=== PATIENT | male | born 1990 | race Caucasian/White ===

== ENCOUNTER → 2023-07-09 | Outpatient (CLI) | payer BC ==
--- NOTE | 2023-07-09 12:16 | US ---
EXAMINATION TYPE: US mass soft tissue chest/back DATE OF EXAM: 07/09/2023 COMPARISON: NONE CLINICAL INDICATION: Male, 33 years old with history of R22.2 Right flank mass; patient feels small l ump at lower RT back just lateral to the spine x 1-2 months TECHNIQUE: [employer] notes: several images taken at the area of concern FINDINGS: [employer] notes: 1.8x1.2x1.3cm hypoechoic area noted within the tissue layer. Lipoma vs. other IMPRESSION: The provided images show a subtle rounded area at the patient's palpable site that may be located wit hin the paraspinal musculature to the right of midline measuring 1.8 x 1.3 x 1.2 cm. The exact etiolo gy is unclear. Mesenchymal tumor such as intramuscular myxoma is in the differential. As the etiology is unclear, recommend either short interval follow-up ultrasound versus further evaluation with CT o r MRI.
== END | disposition home or self-care (01) ==
LOC: RADUSWWP 10:49
PROVIDERS: ATTEND Family Medicine
DX: R22.2 Localized swelling, mass and lump, trunk (principal)

== ENCOUNTER → 2023-08-05 | Outpatient (CLI) | payer BC ==
--- NOTE | 2023-08-06 09:48 | MR ---
EXAMINATION TYPE: MR lumbar spine wo/w con DATE OF EXAM: 08/05/2023 8:53 PM CLINICAL INDICATION:Male, 33 years old with history of R22.2 LOCALIZED SWELLING, MASS AND LUMP, TRUNK ; PHH, Low back pain, quarter size palpable mass slightly to the right of spine, marker placed. r COMPARISON: None TECHNIQUE: Multi planar, multi sequence imaging was performed utilizing: T1-weighted, T2-weighted, a nd turbo inversion recovery imaging of the lumbar spine. IV Contrast: 10 cc Gadavist. (None if empty) FINDINGS: Alignment: The lumbar vertebral bodies have preserved heights with grade 1 anterolisthesis of L5 on S 1. Cord: The conus medullaris and the distal spinal cord appear unremarkable with regards to their signa l intensity and morphology. Bones/Discs: Mild degeneration changes throughout the spine with osteophyte formation and facet joint arthropathy. Intervertebral disc signal is maintained.r T12-L1: No evidence of significant spinal canal stenosis or neural foraminal stenosis. L1-L2: No evidence of significant spinal canal stenosis or neural foraminal stenosis. L2-L3: No evidence of significant spinal canal stenosis or neural foraminal stenosis. L3-L4: No evidence of significant spinal canal stenosis or neural foraminal stenosis. L4-L5: No evidence of significant spinal canal stenosis or neural foraminal stenosis. L5-S1: Disc uncovering from grade 1 anterolisthesis and facet joint arthropathy with mild spinal ellis l stenosis and moderate bilateral neural foraminal stenosis. No significant spinal canal or neural foraminal stenosis in the remainder of the visualized levels. Other findings: Palpable marker correlates with subcutaneous tissue which appears normal. No organiz ing fluid collection or suspicious mass. Masslike lipomatous tissue measuring 26 x 13 mm is present. No abnormal postcontrast enhancement. IMPRESSION: 1. Palpable marker correlates with subcutaneous tissue possibly relating to a lipoma measuring up to 26 x 13 mm. No organizing fluid collection or suspicious mass. 2. No definitive evidence of disc herniation or significant spinal canal stenosis. 3. Multilevel disc degeneration with associated osteoarthritic changes. 4. Grade 1 anterolisthesis of L5 on S1 With disc uncovering and moderate bilateral neural foraminal s tenosis.
== END | disposition home or self-care (01) ==
LOC: RADMRIMAIN 19:20
PROVIDERS: ATTEND Family Medicine
DX: M51.36 Other intervertebral disc degeneration, lumbar region (principal); M47.816 Spondylosis without myelopathy or radiculopathy, lumbar region; M43.17 Spondylolisthesis, lumbosacral region; M99.73 Connective tissue and disc stenosis of intervertebral foramina of lumbar region; R22.2 Localized swelling, mass and lump, trunk
CPT/HCPCS: 72158; A9585

== ENCOUNTER → 2024-08-05 | Outpatient (CLI) | payer BC, OTHER ==
[2024-08-05 15:11] LABS: Basophils # (A) 0.03 X 10*3/uL (0.00-0.10); Basophils % (A) 0.6 %; Eosinophils # (A) 0.06 X 10*3/uL (0.04-0.35); Eosinophils % (A) 1.2 %; HCT 45.4 % (39.6-50.0); HGB 15.9 g/dL (13.0-17.0); Lymphocytes % (A) 38.4 %; MCH 31.5 pg (27.0-32.0); MCV 90.1 FL (80.0-97.0); Mean Platelet Volume 12.2 FL (9.5-12.2); Monocytes # (A) 0.44 X 10*3/uL (0.20-1.00); Monocytes % (A) 8.9 %; NRBC Per 100 WBC 0 X 10*3/uL (0.00-0.01); Neutrophils # (A) 2.49 X 10*3/uL (1.80-7.70); Neutrophils % (A) 50.3 %; Platelet Count 203 X 10*3/uL (140-440); RBC 5.04 X 10*6/uL (4.40-5.60); RDW 12.2 % (11.5-14.5); WBC 4.95 X 10*3/uL (4.50-10.00)
== END | disposition home or self-care (01) ==
LOC: LABWHC1 09:59
PROVIDERS: ATTEND Internal Medicine Gastroenterology
DX: K62.5 Hemorrhage of anus and rectum (principal)
CPT/HCPCS: 36415; 85025